=== PATIENT | male | born 1945 | race Two or more races ===

== ENCOUNTER 2021-04-29 06:21 | Day surgery (SDC) | payer OTHER ==
[~2021-04-29 06:21] MED LIST: ACCUPRIL10 MG PO; METFORMIN HCL850 MG
== END 2021-04-29 16:35 | disposition home or self-care (01) ==
LOC: CIR.AMB 06:21
PROVIDERS: ATTEND Urology
DX: N32.0 Bladder-neck obstruction (principal)